=== PATIENT | female | born 1960 | race Hispanic/Latino ===

== ENCOUNTER 2022-12-01 16:42 | Outpatient (CLI) | payer BC | END 2022-12-01 16:43 | disposition home or self-care (01) | LOC: SCSRAD 16:42 | PROVIDERS: ATTEND Family Medicine | DX: M16.12 Unilateral primary osteoarthritis, left hip (principal) ==

== ENCOUNTER 2023-01-18 15:49 | Outpatient (CLI) | payer BC ==
[2023-01-18 17:17] LABS: #Basophils 0.1 10x3/uL (0.0-0.2); #Eosinphils 0.2 10x3/uL (0.0-0.5); #Monocytes 0.4 10x3/uL (0.0-1.1); #Neutrophils 3.4 10x3/uL (1.5-8.4); %Basophils 1.2 % (0.0-2.0); %Eosinophils 3.2 % (0.0-6.0); %Lymphocytes 32.3 % (18.0-47.0); %Monocytes 6.6 % (0.0-10.0); %Neutrophils 56.5 % (40.0-75.0); Mean Corpuscular HGB CONC 32.2 g/dL (32.0-36.0); Mean Corpuscular Hemoglobin 29.8 pg (27.0-33.0); Mean Corpuscular Volume 92.6 fl (81.6-98.3); Mean Platelet Volume 10.6 fl (7.4-10.4); Platelet Count 363 10x3/uL (150-450); RBC Distribution Width 12.5 % (11.5-14.5); Red Blood Cell (RBC) Count 4.03 10x6/uL (3.90-5.03)
[2023-01-18 17:20] LABS: Anion Gap 13 mmol/L (10-20); BUN (Urea Nitrogen) 15 mg/dL (9.8-20.1); Calc. Creatinine Clearance 0 mL/min (70-130); Calcium 9.3 mg/dL (7.8-10.44); Carbon Dioxide 25 mmol/L (23-31); Chloride 106 mmol/L (98-107); Estimated GFR 80; Glucose 89 mg/dL (80-115); Potassium 4.3 mmol/L (3.5-5.1); Sodium 140 mmol/L (136-145)
[2023-01-18 17:26] LABS: Prothrombin Time 10.7 sec (9.5-12.1)
== END 2023-01-18 15:50 | disposition home or self-care (01) ==
LOC: LABBT 15:49
PROVIDERS: ATTEND Orthopaedic Surgery
DX: Z01.818 Encounter for other preprocedural examination (principal); M16.12 Unilateral primary osteoarthritis, left hip
CPT/HCPCS: 80048; 85025; 85610; 87081; 93005; 93010

== ENCOUNTER 2023-01-23 05:45 | Observation (INO) | payer BC ==
[2023-01-22 10:49] VITALS: BMI 23.3
[2023-01-23] MEDS ORDERED: fentaNYL PF 100 MCG/2 ML SYRINGE ONE ×2 (06:08→09:15)
[2023-01-23] MEDS ORDERED: CEFAZOLIN 2 GM VIAL ONE (06:23)
[2023-01-23] MEDS ORDERED: Vancomycin 1 GM/200 ML (FROZEN) BAG ONE (06:23)
[2023-01-23] MEDS ORDERED: Tranexamic Acid 1,000 MG/10 ML VIAL ONE (06:23)
[2023-01-23] MEDS ORDERED: Sodium Chloride 0.9% 200 ML ONE (06:23)
[2023-01-23] MEDS ORDERED: Midazolam HCl 2 mg/2 ml Vial ONE (06:39)
[2023-01-23] MEDS ORDERED: Dexamethasone 4 mg/ml Vial ONE (06:41)
[2023-01-23] MEDS ORDERED: Ketorolac Tromethamine 30 MG/ML VIAL ONE (07:09)
[2023-01-23] MEDS ORDERED: Bupivacaine HCl 0.5%/Epinephrine 1:200,000/PF 30 ml Vial ONE (07:09)
[2023-01-23] MEDS ORDERED: Lidocaine 1% PF 5 ML VIAL ONE (07:09)
[2023-01-23] MEDS ORDERED: Ondansetron PF 4 MG/2 ML Vial ONE ×2 (07:09→08:28)
[2023-01-23] MEDS ORDERED: Rocuronium Bromide 10 MG/ML (10ML VIAL) ONE (07:09)
[2023-01-23] MEDS ORDERED: Dexamethasone 20 MG/5 ML VIAL ONE (07:09)
[2023-01-23] MEDS ORDERED: PROPOFOL 200 MG/20 ML VIAL ONE (07:09)
[2023-01-23 07:12] LABS: SARS-CoV-2 NAA Rapid Test Not Detected (NotDetected)
[2023-01-23] MEDS ORDERED: Bupivacaine PF 0.5% 30 ML VIAL ONE (07:32)
[2023-01-23] MEDS ORDERED: SUGAMMADEX SODIUM 200 MG/2 ML VIAL ONE (08:28)
[2023-01-23] MEDS ORDERED: Zolpidem Tartrate 5 MG TAB PO PRN (09:06)
[2023-01-23] MEDS ORDERED: HYDROcodone/Acetaminophen 10/325 mg Tablet PO PRN ×2 (09:06)
[2023-01-23] MEDS ORDERED: diphenhydrAMINE 25 MG CAP PO PRN (09:06)
[2023-01-23] MEDS ORDERED: Ondansetron PF 4 MG/2 ML Vial IVP PRN (09:06)
[2023-01-23] MEDS ORDERED: Acetaminophen 325 MG TAB PO PRN (09:06)
[2023-01-23] MEDS ORDERED: traMADol HCl 50 MG TAB PO PRN ×2 (09:06)
[2023-01-23] MEDS ORDERED: Promethazine HCl 25 MG/ML VIAL IM PRN (09:06)
[2023-01-23] MEDS ORDERED: Fentanyl 100 MCG/2 ML VIAL SLOW IVP PRN (09:06)
[2023-01-23] MEDS ORDERED: FENTANYL 50 MCG/ML 1 ML VIAL SLOW IVP PRN ×2 (09:20→09:21)
[2023-01-23] MEDS: Sodium Chloride 0.9% 1,000 ML IV SCH ×2 (10:51→21:49)
[2023-01-23] MEDS: Ketorolac Tromethamine 30 MG/ML VIAL IVP SCH ×2 (13:59→21:40)
[2023-01-23] MEDS: CEFAZOLIN 2 GM in Sodium Chloride 0.9% 100 ML IVPB SCH ×2 (14:00→21:49)
[2023-01-23] MEDS: Senokot S 8.6-50 MG TAB PO SCH (21:39)
[2023-01-23] MEDS: Aspirin 81 mg Enteric Coated Tablet PO SCH (21:39)
[2023-01-23] MEDS: Ferrous Gluconate 324 MG TAB PO SCH (21:39)
[2023-01-24] MEDS: Sodium Chloride 0.9% 1,000 ML IV SCH ×2 (04:09→13:52)
[2023-01-24] MEDS: Ketorolac Tromethamine 30 MG/ML VIAL IVP SCH ×2 (05:43→13:48)
[2023-01-24 06:34] LABS: Hemoglobin 10.3 g/dL (12.0-16.0); Mean Corpuscular HGB CONC 33.3 g/dL (32.0-36.0); Mean Platelet Volume 8.1 fL (7.4-10.4); Platelet Count 233 10x3/uL (130-400); RBC Distribution Width 11.5 % (11.5-14.5); Red Blood Cell (RBC) Count 3.22 mill/uL (4.20-5.40); White Blood Cell (WBC) Count 9.3 10x3/uL (4.8-10.8)
[2023-01-24] MEDS: Aspirin 81 mg Enteric Coated Tablet PO SCH (07:46)
[2023-01-24] MEDS: Senokot S 8.6-50 MG TAB PO SCH (07:46)
[2023-01-24] MEDS: Ferrous Gluconate 324 MG TAB PO SCH (07:46)
[2023-01-24] MEDS ORDERED: Multivitamin W/ Minerals 1 TAB PO SCH (09:00)
[2023-01-24 16:50] VITALS: BP 101/65; TEMP 97.3
== END 2023-01-24 17:45 | disposition home or self-care (01) ==
LOC: SDC 05:45 → SJJU 09:06
PROVIDERS: ADMIT Orthopaedic Surgery; ATTEND Orthopaedic Surgery
PROC: 0SRB04A Replacement of Left Hip Joint with Ceramic on Polyethylene Synthetic Substitute, Uncemented, Open Approach (ICD-10-PCS; principal; 2023-01-23)
DX: M16.12 Unilateral primary osteoarthritis, left hip (principal); Q65.6 Congenital unstable hip; M87.052 Idiopathic aseptic necrosis of left femur; Q65.89 Other specified congenital deformities of hip; Z91.013 Allergy to seafood; Z91.041 Radiographic dye allergy status; Z96.641 Presence of right artificial hip joint; Z20.822 Contact with and (suspected) exposure to COVID-19
CPT/HCPCS: 36415; 72170; 85027; 96374; 96375; 96376; C1776; G0378; J1100; J1885; J2250; J2405; J2704; J3370-JW; J3490; J7050; S0020; U0002